=== PATIENT | female | born 2000 | race American Indian/Alaskan Native ===

== ENCOUNTER 2021-04-05 12:23 | Emergency (ER) | payer SELFPAY ==
--- NOTE | 2021-04-05 12:55 | Emergency Department Report ---
HPI - General Chief Complaint: Psych Time Seen by Provider: 04/05/21 12:31 - HPI HPI: Room 12 The patient is a 20-year-old female present with chief complaint of suicidal ideation. Patient states she is felt suicidal this most recent time for the last month. Patient states last week she harmed herself by cutting her right knee and her left wrist. Patient was found at a motel on [facility] and reportedly had "IBS" because she was going to harm her self. ED Past Medical Hx - Past Medical History Previous Medical History?: No Hx Psychiatric Treatment: Yes (Depression) - Surgical History Past Surgical History?: No - Family History Family history: no significant - Social History Smoking Status: Never Smoker Substance Use Type: None ( denies illicit drug use), Alcohol (Occasional) ED Review of Systems ROS: Stated complaint: MH Other details as noted in HPI Constitutional: no symptoms reported Eyes: denies: eye pain ENT: denies: throat pain Respiratory: no symptoms reported Cardiovascular: denies: chest pain Endocrine: no symptoms reported Gastrointestinal: denies: abdominal pain Genitourinary: denies: dysuria Musculoskeletal: denies: back pain Neurological: denies: headache Psychiatric: depression, suicidal thoughts Physical Exam - Physical Exam Vital Signs: Vital Signs 04/05/21 04/05/21 12:27 12:46 Temperature 98.0 F Pulse Rate 82 88 Respiratory 16 20 Rate Blood Pressure 124/73 122/75 [Right] O2 Sat by Pulse 98 100 Oximetry Physical Exam: GENERAL: The patient is well-developed well-nourished female with sad affect sitting on chair. [] HEENT: Normocephalic. Atraumatic. Extraocular motions are intact. Patient has moist mucous membranes. NECK: Supple. Trachea midline CHEST/LUNGS: Clear to auscultation. There is no respiratory distress noted. HEART/CARDIOVASCULAR: Regular. There is no tachycardia. There is no gallop rub or murmur. ABDOMEN: Abdomen is soft, nontender. Patient has normal bowel sounds. There is no abdominal distention. SKIN: There is no rash. There is no edema. There is no diaphoresis. There are healed 1 year lacerations to the right knee and one healed laceration to the left wrist NEURO: The patient is awake, alert, and oriented. The patient is cooperative. The patient has no focal neurologic deficits. The patient has normal speech and gait. GCS 15 MUSCULOSKELETAL: There is no evidence of acute injury. ED Course Vital Signs 04/05/21 04/05/21 12:27 12:46 Temperature 98.0 F Pulse Rate 82 88 Respiratory 16 20 Rate Blood Pressure 124/73 122/75 [Right] O2 Sat by Pulse 98 100 Oximetry ED Medical Decision Making - Lab Data Result diagrams: 04/05/21 13:07 04/05/21 13:07 Laboratory Tests 04/05/21 04/05/21 04/05/21 13:07 13:07 13:07 WBC 8.3 RBC 5.59 H Hgb 12.0 Hct 36.7 MCV 66 L MCH 22 L MCHC 33 RDW 15.0 Plt Count 313 Lymph % (Auto) 24.7 [place] % (Auto) 10.1 H Eos % (Auto) 1.4 Baso % (Auto) 0.8 Lymph # (Auto) 2.0 [place] # (Auto) 0.8 Eos # (Auto) 0.1 Baso # (Auto) 0.1 Seg Neutrophils % 63.0 Seg Neutrophils # 5.2 Sodium 136 L Potassium 4.3 Chloride 101.2 Carbon Dioxide 26 Anion Gap 13 BUN 10 Creatinine 0.7 Estimated GFR > 60 BUN/Creatinine Ratio 14 Glucose 85 Calcium 9.8 Total Bilirubin 0.30 AST 16 ALT 10 Alkaline Phosphatase 67 Total Protein 7.5 Albumin 4.5 Albumin/Globulin Ratio 1.5 HCG, Qual Salicylates < 0.3 L Acetaminophen Plasma/Serum Alcohol 04/05/21 04/05/21 04/05/21 13:07 13:07 13:07 WBC RBC Hgb Hct MCV MCH MCHC RDW Plt Count Lymph % (Auto) [place] % (Auto) Eos % (Auto) Baso % (Auto) Lymph # (Auto) [place] # (Auto) Eos # (Auto) Baso # (Auto) Seg Neutrophils % Seg Neutrophils # Sodium Potassium Chloride Carbon Dioxide Anion Gap BUN Creatinine Estimated GFR BUN/Creatinine Ratio Glucose Calcium Total Bilirubin AST ALT Alkaline Phosphatase Total Protein Albumin Albumin/Globulin Ratio HCG, Qual Negative Salicylates Acetaminophen 5.0 L Plasma/Serum Alcohol < 0.01 - Differential Diagnosis Suicidal ideation, depression, self-harm Critical care attestation.: If time is entered above; I have spent that time in minutes in the direct care of this critically ill patient, excluding procedure time. ED Disposition Clinical Impression: Suicidal ideation Disposition: [id number]/TX-65 PSY HOSP/PSY UNIT Is pt being admited?: No Does the pt Need Aspirin: No Condition: Stable
[2021-04-05 13:58] LABS: Basophils # (Auto) 0.1 K/mm3 (0.0-0.1); Basophils % (Auto) 0.8 % (0.0-1.8); Eosinophils # (Auto) 0.1 K/mm3 (0.0-0.4); Eosinophils % (Auto) 1.4 % (0.0-4.3); Hematocrit 36.7 % (30.3-42.9); Lymphocytes % (Auto) 24.7 % (13.4-35.0); Mean Corpuscular HGB Conc 33 % (30-34); Monocytes # (Auto) 0.8 K/mm3 (0.0-0.8); Monocytes % (Auto) 10.1 % (0.0-7.3); Platelet Count 313 K/mm3 (140-440); Red Blood Count 5.59 M/mm3 (3.65-5.03)
[2021-04-05 14:08] LABS: Mean Corpuscular Volume 66 fl (79-97)
[2021-04-05 14:15] LABS: Alanine Aminotransferase 10 units/L (7-56); Albumin 4.5 g/dL (3.9-5); BUN/Creatinine Ratio 14; Blood Urea Nitrogen 10 mg/dL (7-17); Calcium 9.8 mg/dL (8.4-10.2); Hemolysis Index 3
[2021-04-05 17:15] LABS: Bilirubin,Urine NEG (Negative); Blood,Urine NEG (Negative); Color,Urine Yellow (Yellow); Mucus,Urine 2+ /HPF; Protein,Urine <15 mg/dL mg/dL (Negative); Urobilinogen,Urine < 2.0 mg/dL (<2.0)
[2021-04-05 17:16] LABS: Amphetamine Screen,Urine Negative; Benzodiazepines Screen,Urine Negative; Cannabinoid Screen,Urine Negative; Cocaine Screen,Urine Negative; Methadone Screen,Urine Negative; Opiate Screen,Urine Negative
[2021-04-06 08:52] VITALS: BP 102/54
--- NOTE | 2021-04-06 10:07 | Emergency Department Report ---
Blank Doc - Documentation Documentation: The patient is to the ED for suicidal ideation. Patient was seen and evaluated by mental health. Patient has been placed on the [facility] board and is awaiting placement. There are no new events reported.
--- NOTE | 2021-04-06 10:30 | Consultation ---
History of Present Illness - Reason for Consult Consult date: 04/06/21 Reason for consult: SI - History of Present Psychiatric Illness Per ER Note: The patient is a 20-year-old female present with chief complaint of suicidal ideation. Patient states she is felt suicidal this most recent time for the last month. Patient states last week she harmed herself by cutting her right knee and her left wrist. Patient was found at a motel on [address] and reportedly had "IBS" because she was going to harm her self. Per Nurse/sitter discussion: The patient is optimistic and says she will go to counselling and wants meds. She has presently denies SI/HI or hallucinations of any kind. Makenzie Durbin is a 20y/o female patient who was seen today, during my evaluation the patient appears down. She does verbalize being depressed and states she has been "dealing with a lot of family issues her entire life." The patient says "I really want therapy and maybe medication but I can't afford it." She says that she was "having suicidal thoughts a couple of days ago." The patient currently denies at present. She also denies any fear or feelings of endangerment. She says "I really want to go to counseling." The patient denies ever seeing a psychiatrist or been on any medications. She denies any drug use, or nicotine. She says she uses alcohol occasionally. PAST PSYCHIATRIC HISTORY: Diagnoses: Depression Suicide attempts or Self-harm behavior: Denies Prior psychiatric hospitalizations: Denies Substance Abuse history: Denies Previous psychiatric medications tried: None Outpatient treatment: Denies PAST MEDICAL HISTORY: None reported or document Family Psychiatric History: None reported or documented SOCIAL HISTORY Marital Status: Single Living Arrangements: family Employment Status: Unemployed Access to guns/weapons: denies Education: [employer] History of Abuse: denies Legal History: denies REVIEW OF SYSTEMS Constitutional: Negative for weight loss ENT: Negative for stridor Respiratory: Negative for cough or hemoptysis All other systems reviewed and are negative MENTAL STATUS EXAMINATION General Appearance and Behavior: Age appropriate, wearing appropriate clothes, cooperative polite with questioning, good eye contact, calm and cooperative Cooperation: cooperative Psychomotor Behavior: Psychomotor normal Mood: "good" Affect and affective range: congruent with stated mood, Euthymic Thought Process: goal directed Thought Content: optimism Speech: Normal volume, Regular rate and rhythm Suicidal Ideation: Denies Homicidal Ideation: Denies hallucination: Denies Delusions: None elicited Impulse Control: Intact Insight and Judgment: Limited Memory: Intact Attention: attentive, engaging Orientation: Alert and oriented Diagnoses: Major Depressive Disorder Treatment Plan d/c 1013 Zoloft 25mg po daily Patient should be compliant with medications and not to use drugs and not to drink alcohol. PSYCHOTHERAPY: Supportive psychotherapy provided MEDICAL: Per primary team DELIRIUM PRECAUTIONS: Please re-orient patient frequently, keep lights on during the day, and minimize benzodiazepines and opiates as these medications could worsen patient's confusion. 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 The patient understands that if SI/HI or any feeling of endangerment are to arise she is to seek immediate assistance. He is to abstain from all illicit drug use. The manager ethics is to give him resources for CBT, med management and assistance She is to follow up in 7 to 14 days with outpatient psych Will sign off Thank you for the consult. Please contact with any questions and/or concerns. Case staffed with Dr. Chavez Medications and Allergies Allergies Allergy/AdvReac Type Severity Reaction Status Date / Time No Known Allergies Allergy Unverified 04/05/21 12:30 Mental Status Exam - Vital signs Last Vital Signs Temp 97.9 F 04/06/21 08:51 Pulse 83 04/06/21 08:51 Resp 18 04/06/21 08:51 BP 102/54 04/06/21 08:51 Pulse Ox 96 04/06/21 08:51 Results Result Diagrams: 04/05/21 13:07 04/05/21 13:07 Abnormal lab results 04/05/21 04/05/21 04/05/21 Range/Units 13:07 13:07 13:07 RBC 5.59 H (3.65-5.03) M/mm3 MCV 66 L (79-97) fl MCH 22 L (28-32) pg [place]cl[place] % (Auto) 10.1 H (0.0-7.3) % Sodium 136 L (137-145) mmol/L Salicylates < 0.3 L (2.8-20.0) mg/dL Acetaminophen (10.0-30.0) ug/mL 04/05/21 Range/Units 13:07 RBC (3.65-5.03) M/mm3 MCV (79-97) fl MCH (28-32) pg [place]clennan % (Auto) (0.0-7.3) % Sodium (137-145) mmol/L Salicylates (2.8-20.0) mg/dL Acetaminophen 5.0 L (10.0-30.0) ug/mL All other labs normal.
[2021-04-06] MEDS ORDERED: SERTRALINE 25 MG TAB PO SCH (11:00)
== END 2021-04-06 13:58 ==
LOC: ED 12:23
DX: U07.1 COVID-19 (principal); R45.851 Suicidal ideations; F32.9 Major depressive disorder, single episode, unspecified; Z79.899 Other long term (current) drug therapy
CPT/HCPCS: 36415; 80053; 80307; 81001; 84703; 85025; 99284; U0003; 80320; G0480